=== PATIENT | male | born 1955 | race Caucasian/White ===

== ENCOUNTER 2020-05-11 10:44 | Emergency (ER) | payer MEDICARE, SELFPAY ==
[2020-05-11 10:46] VITALS: BP 105/95; PULSE 58; RESP 18; TEMP 36.1; O2SAT 97; BMI 34.2
--- NOTE | 2020-05-11 11:04 | ED.VIS.GEN ---
History of Present Illness Chief Complaint: Abn Labs Detail of Chief Complaint: Elevated creatinine and anemia Informant: Patient, SNF Onset: - - Past several days Context: Gradual Onset Timing: Continuous Quality: Recent admission to outside facility and placement to senior care for reha Location: long-term facility Current Severity: Moderate Maximum Severity: Moderate Worsened by: Metastatic cancer Relieved by: Nothing Associated Symptoms: Malaise, generalized weakness Narrative: Patient is a 65-year-old male who was recently diagnosed with malignant neoplasm of unspecified part of the bronchus/lung with metastasis to the bone and secondary to malignancy involving the liver and intrahepatic biliary ducts. Patient was brought to the hospital by ambulance. He does have a signed verified DNR document that accompanied him. He does not want therapy. He is alert he is oriented has a capacity to refuse treatment for his metastatic cancer and dialysis. Patient has current long-term use of anti-platelet medicine, anticoagulant use with recent diagnosis of metastatic cancer to liver and bone. He also has history of type 2 diabetes, circulatory complications due to diabetes. He also had recent admission for acute pancreatitis. There is a history of hyperlipidemia and hypertension without involvement of heart failure. Prior similar symptoms: No Recent Illness/Hospitalization: Yes - Past Medical History (1) Metastatic cancer Status: Acute (2) Elevated serum creatinine Status: Acute (3) Anemia Status: Acute Past Medical History - Allergies and Home Meds Allergies/Adverse Reactions: Allergies No Known Allergies Allergy (Verified 05/11/20 10:48) Primary Care Physician: Davidson Hall MD [Primary Care Provider] - Prior records reviewed: No - Reviewed paperwork that accompanied patient from nursing facility Lives: Jail Smoking Status: Current every day smoker Alcohol: None Drugs: None Review of Systems General: Reports: Malaise, Weight loss. Denies: Chills, Fever, Subjective, Sweats Eyes: Denies: Visual changes - bilaterally, Blurred Vision - bilaterally ENT: Denies: Rhinorrhea, Sore throat Cardiovascular: Denies: Chest pain, Palpitations Respiratory: Denies: Dyspnea, Cough, Sputum, Dyspnea on exertion Gastrointestinal: Reports: Abdominal pain, Nausea. Denies: Vomiting, Diarrhea, Constipation Genitourinary: Denies: Dysuria, Hematuria, Frequency Musculoskeletal: Reports: Swelling. Denies: Myalgias, Arthralgias, Neck pain, Back pain Skin: Denies: Rash Neurological: Reports: Weakness Endocrine: Denies: Polyuria, Polydipsia Hematologic: Reports: Easy bruising Physical Exam Vital Signs/Narrative: Vital Signs Temp Pulse Resp BP Pulse Ox 05/11/20 10:46 96.9 F L 58 L 18 105/95 H 97 Inital Vital Signs reviewed: Yes General: Well nourished, Well developed, Obese, No Acute Distress Head: Normocephalic, Atraumatic Eyes: Perrl, EOMI, Pale conjunctiva. Negative for: Scleral icterus ENT: No rhinorrhea, TM's clear Neck: Supple, Nontender, No lymphadenopathy, No JVD Cardiovascular: Regular rhythm, No murmurs, Normal S1, Normal S2, Bradycardia Respiratory: No distress, CTA bilaterally, Chest nontender Abdomen: Soft, Nontender, Nondistended, Normal bowel sounds Rectal: Deferred Back: Nontender Extremities: Nontender, Edema Skin: No rash, Pallor. Negative for: Cyanosis, Diaphoresis, Jaundice Neurological: Alert, Oriented x3, Cranial nerves II-XII grossly intact, Normal Strength, Normal Sensation, Normal DTR Psychological: Normal affect Diagnostic/Tx/Re-eval - Medical Decision Making Since patient is DNR comfort care wishes no treatment for his newly diagnosed metastatic cancer who has developed an elevated creatinine plan is to contact hospice. Patient informed me that the nursing facility would not accept him back until his laboratory results have been corrected Since patient does not wish any intervention and is DNR no new laboratory tests were ordered. Results from 2 days ago were reviewed. Creatinine was 4.2 and hemoglobin was 8.1. Woke with Dr. Brie Julian hospice physician. Spoke with Laura the hospice nurse. Patient would like to return to the nursing facility. He would like to know what his physical therapy options are. Plan is to honor patient's wishes and transfer her back to nursing facility since he requesting no dialysis or treatment for his metastatic lung cancer to liver and bone. ED Disposition - Plan for ED Patient: Disposition: Senior Care Facility Diagnosis: Metastatic lung cancer (metastasis from lung to other site), Acute kidney injury, Anemia of chronic illness Instructions: ED Anemia Type Not Specified, ED END STAGE RENAL DISEASE, Lung Cancer: Planning for the Future, Living with Lung Cancer Referrals: Davidson Hall MD [Primary Care Provider] - As Needed
--- NOTE | 2020-05-11 11:44 | ED.RN ---
PT ARRIVES TO ED NO KNOWING WHY HE IS HERE. HE STATES HE HAS CANCER. DNRCC IN PLACE. PT DOES NOT WANT ANY TREATMENT. DR SANTANA REQUESTS CALL TO HOSPICE FOR REFERRAL. TC MADE, SPOKE TO ARMANDO. WILL HAVE ADMISSION NURSE COME TO ASSESS PT.
[2020-05-11 13:00] VITALS: RESP 16
[2020-05-11 15:15] VITALS: BP 146/68; PULSE 64; RESP 16; O2SAT 93
[2020-05-11 15:20] VITALS: BP 146/68; PULSE 63; RESP 19; O2SAT 93
== END 2020-05-11 16:21 | disposition skilled nursing facility (03) ==
PROVIDERS: Emergency Provider Emergency Medicine; PCP Family Medicine
DX: N17.9 Acute kidney failure, unspecified (principal); C34.90 Malignant neoplasm of unspecified part of unspecified bronchus or lung; C79.51 Secondary malignant neoplasm of bone; C78.7 Secondary malignant neoplasm of liver and intrahepatic bile duct; Z66 Do not resuscitate; Z99.2 Dependence on renal dialysis; E11.59 Type 2 diabetes mellitus with other circulatory complications; E78.5 Hyperlipidemia, unspecified; I10 Essential (primary) hypertension; F17.200 Nicotine dependence, unspecified, uncomplicated; D63.8 Anemia in other chronic diseases classified elsewhere
CPT/HCPCS: 99282

== ENCOUNTER 2020-08-15 02:30 | Emergency (ER) | payer SELFPAY ==
[2020-08-15 02:32] VITALS: BP 105/61; PULSE 64; RESP 26; TEMP 35.7; O2SAT 100; BMI 34.0
--- NOTE | 2020-08-15 02:41 | EKG12_ITS ---
Test Reason : DYSRHYTHMIA Blood Pressure : / mmHG Vent. Rate : 066 BPM Atrial Rate : 066 BPM P-R Int : 196 ms QRS Dur : 158 ms QT Int : 446 ms P-R-T Axes : 039 -57 025 degrees QTc Int : 467 ms Normal sinus rhythm Right bundle branch block Left anterior fascicular block Bifascicular block Abnormal ECG Confirmed by ANGÉLICA OSORIO, SKYE ([id number]), avid editor KAMILA HUTTON ([id number]) on 08/16/2020 8:55:53 AM Referred By: BB Confirmed By:SKYE LINDSAY MD
--- NOTE | 2020-08-15 02:42 | ED.DCSUM_ITS ---
History of Present Illness Chief Complaint: Alt LOC Informant: Patient, Process Developer, SNF Onset: - - JPTA Context: - - see below Quality: unresponsive/lethargic Narrative: Patient is at a assisted, DNR comfort care on hospice for a soft tissue cancer and apparently liver cancer, unknown if he has 2 primaries or if these are metastatic lesions, etc. He is normally alert and oriented x3 and goes to bed on his own. He is chronically on 3.5 L nasal cannula oxygen. He was last seen at 2000 normal when he received his evening medications. He was tired throughout the day prior to that but otherwise at his baseline. He was found this morning just prior to arrival (in emergency department around 2:35 AM) sitting in a chair instead of being in bed, pulled off his oxygen so he was sitting in the chair without it, slumped over, unresponsive but breathing with a pulse, hypotensive, hypoxic, borderline bradycardic. Blood pressure 83/47, pulse 61, oxygen 71% on room air. EMS was called to respond, put him on non rebreather and transported him here. Now the patient is awake and states that he feels fine denies any pain, shortness of breath, headache. He is on Eliquis. We were not alerted that he was on hospice in report, yet saw this on the paperwork that was sent accompanying him. - Past Medical History (1) Anemia Status: Chronic (2) Metastatic cancer Status: Chronic Past Medical History - Allergies and Home Meds Allergies/Adverse Reactions: Allergies No Known Allergies Allergy (Verified 08/15/20 02:38) Primary Care Physician: Davidson Hall MD [Primary Care Provider] - As Needed Smoking Status: Unknown if ever smoked Review of Systems ROS: Unable to Obtain - limited due to disorientation; see below. General: Reports: Malaise Eyes: Denies: Visual changes - bilaterally, Diplopia ENT: Denies: Bilateral ear pain, Sore throat Cardiovascular: Denies: Chest pain Respiratory: Denies: Dyspnea, Cough Gastrointestinal: Reports: Abdominal pain - chronic from cancer, unchanged. Denies: Nausea, Vomiting Musculoskeletal: Reports: Swelling - BLE. Denies: Neck pain, Back pain, Extremity Pain Skin: Denies: Rash, Wounds Neurological: Denies: Headache, Numbness Physical Exam Vital Signs/Narrative: Vital Signs Temp Pulse Resp BP Pulse Ox 08/15/20 02:32 96.3 F L 64 26 H 105/61 100 Inital Vital Signs reviewed: Yes General: Well nourished, Well developed, No Acute Distress Head: Normocephalic, Atraumatic Eyes: Perrl, EOMI ENT: Moist mucous membranes, No rhinorrhea Neck: Supple, Nontender, No lymphadenopathy, No JVD Cardiovascular: Regular rate, Regular rhythm, No murmurs. Negative for: Tachycardia Respiratory: No distress, CTA bilaterally, Chest nontender Abdomen: Soft, Nondistended, Normal bowel sounds, Tender - Diffuse, Mass - Several firm areas scattered, abdomen overall soft. Negative for: Guarding, Rebound tenderness Back: Nontender, Normal Inspection Extremities: Nontender, Edema - 3+ both lower extremities to the knees without signs of cellulitis Skin: Normal color, No rash, No Trauma Neurological: Cranial nerves II-XII grossly intact, Normal Sensation, Disoriented - Oriented to name and his age but not the month or place, Lethargic - Alerts easily to voice., Weakness - Diffuse and symmetric. Patient has mild drift on both arms symmetrically, and cannot hold his legs up but they are very edematous, he can move them both symmetrically., - - No aphasia. Speech mildly slurred. Psychological: Normal affect, Normal Mood Diagnostic/Tx/Re-eval Impressions Brain CT 08/15/20 03:27 IMPRESSION: No acute intracranial abnormality. Chronic involutional and white matter changes. Individualized dose optimization techniques were used for this CT. at 0357 Reported and signed by: Ramona Simeon MD Electronically Signed: Ramona Simeon MD at 3:57 EST Tel , Service support , 08/15/20 03:27 CT Brain [Brain/Head without Contrast] [CT] Stat Laboratory Results 08/15/20 08/15/20 03:55 03:55 WBC 6.9 RBC 3.79 L Hgb 9.8 L Hct 34.9 L MCV 92.1 MCH 25.9 L MCHC 28.1 L RDW Std Deviation 55.5 H RDW Coeff of Ralf 16.4 H Plt Count 235 MPV 10.8 Immature Gran % (Auto) 1.400 H Neut % (Auto) 79.7 H Lymph % (Auto) 8.4 L [place] % (Auto) 10.1 H Eos % (Auto) 0.1 Baso % (Auto) 0.3 Absolute Neuts (auto) 5.5 Absolute Lymphs (auto) 0.58 L Nucleated RBC % 0 Sodium 134 L Potassium 5.1 Chloride 94 L Carbon Dioxide 36.0 H Anion Gap 4 L BUN 44 H Creatinine 2.30 H Estim Creat Clear Calc 33.65 Est GFR (MDRD) Af Amer 37 L Est GFR (MDRD) Non-Af 30 L BUN/Creatinine Ratio 19.1 Glucose 106 Calcium 8.9 Troponin I < 0.015 - Rhythm Strip Rhythm Strip: Sinus Rhythm Rate: 66 Ectopy: None - EKG Initial EKG Interpretation: Sinus Rhythm, No Acute Injury Pattern, RBBB, LAFB Prior: No Prior - Medical Decision Making I do not think this patient is having an acute stroke. His slurred speech is nonspecific in context of no other lateralizing neurologic deficits, and I would expect a patient who is hypoxic and hypotensive as he was when found by nursing, to be lethargic and have slurred speech as a result. Now that the patient is on oxygen, he is improved compared with report, and his vital signs are normal except for mild tachypnea. He is in no respiratory distress and denies feeling dyspneic. I had respiratory perform an EKG, and then we supported the patient with oxygen and I had the hospice triage nurse call person paged. She was unaware that the patient was being sent to the emergency department. We discussed his case. She prefers that we hold off on further testing since the patient would likely be discharged from the emergency departm ent back to long term facility, and we will continue to monitor him on oxygen for now. My suspicion is that the patient went to sit in his chair, and in doing so inadvertently took himself off of oxygen, creating this clinical picture and transient hypotension that resolved now that he is back on his oxygen. Regardless, the patient is DNR comfort care only, so we would not escalate care if he had another acute medical process. Hospice nurse came to the ER and saw the patient, and spoke with the healthcare power of logistics technician. In the end they decided to allow some labs to be run in his CT head. These were done and results are as above. 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 We do not have a prior creatinine on him, but there is nothing suggesting he would need dialysis at this time. She states that he has a large tumor in his lung that is about 9 cm, in addition to a tumor in his spine that his made his legs almost inoperable, and he is nonambulatory, cannot put himself to bed, requires help, and disagrees with the nursing report that our staff received. Additionally, family states that he really wanted a Covid vaccine, so it was given to him a couple days ago. His fatigue for the last 24 hours or so could easily be explained by that. At this time, the patient is more appropriate and alert, his vital signs have remained stable, and we have been trying to taper his oxygen requirement down as much as possible. Family and hospice nurse are comfortable with him being discharged back to the assisted which is the plan. ED Disposition - Plan for ED Patient: Disposition: Home or Assisted Living Diagnosis: Hypoxemia, Transient hypotension, Metastatic cancer Instructions: ED ALOC Referrals: Davidson Hall MD [Primary Care Provider] - As Needed
--- NOTE | 2020-08-15 02:44 | ED.RN ---
NO OLD EKGS IN MUSE
--- NOTE | 2020-08-15 02:59 | ED.RN ---
THIS RN SPOKE WITH HOSPICE NURSE RUTHIE. SHE STATES TO KEEP PT COMFORTABLE BUT HOLD OTHER CARE SUCH CT UNTIL SHE CAN TALK TO HER COMPUTED TOMOGRAPHY TECHNICIAN AND NURSING STAFF. SHE STATES SHE IS ALSO POSSIBLY SENDING A NURSE FROM HOSPICE TO THE ER TO ASSIST WITH PT CARE. NOTIFIED AND AGREEABLE TO PLAN OF CARE
--- NOTE | 2020-08-15 03:27 | CT_ITS ---
HISTORY: ALTERED MENTAL STATUS. Hx of metastatic lung cancer, HTN, diabetes and TIA ADDITIONAL HISTORY: None provided. COMPARISON: None EXAMINATION/TECHNIQUE: CT Head or Brain W/O Contrast Injection. Axial, coronal and sagittal images. Number of images including paperwork: 261. A radiation dose optimization technique was used for this scan. FINDINGS: BRAIN: No acute hemorrhage or mass. No definite acute infarct; MRI more sensitive. White matter hypodensity is nonspecific but most commonly seen with chronic ischemic changes. Generalized atrophy. VENTRICULAR SYSTEM: No hydrocephalus. PARANASAL SINUSES AND MASTOIDS: No air-fluid level in the imaged extent. Mucosal thickening noted. ORBITS: Unremarkable imaged extent. SKELETON AND SOFT TISSUES: Calvarium intact. ASPECTS score: Not applicable. CT/Brain/Head without Contrast IMPRESSION: No acute intracranial abnormality. Chronic involutional and white matter changes. Individualized dose optimization techniques were used for this CT. at 0357 Reported and signed by: Ramona Simeon MD Electronically Signed: Ramona Simeon MD at 3:57 EST Tel , Service support ,
[2020-08-15 03:31] VITALS: BP 108/59; PULSE 61; RESP 18; O2SAT 95
[2020-08-15 04:00] VITALS: RESP 18
[2020-08-15 04:09] LABS: Absolute Lymphocyte Count 0.58 X10^3/uL (0.83-4.51); Absolute Neutrophil Count 5.5 X10^3/uL (2.0-7.7); Basophil# 0.02 X10^3/uL; Basophil% 0.3 % (0-1); Eosinophil# 0.01 X10^3/uL; Eosinophils% 0.1 % (0-5); Hematocrit 34.9 % (40-54); Hemoglobin 9.8 g/dL (13.0-16.5); Lymphocyte # 0.58 X10^3/ul (4.0); Lymphocyte % 8.4 % (19-41); Mean Corp Hgb Conc 28.1 g/dL (32-36); Mean Corpuscular Hgb 25.9 pg (27.0-32.0); Mean Corpuscular Volume 92.1 fL (80-94); Mean Platelet Vol. 10.8 fl (6.2-12.0); Monocyte% 10.1 % (0-10); NRBC Flagged by Analyzer 0 % (0-5); Neutrophil # 5.52 X10^3/uL (2.7-7.7); Neutrophil % 79.7 % (47-70); POSITIVE DIFFERENTIAL YES; Platelet Count 235 K/mm3 (150-450); RBC Distribution Width CV 16.4 % (11.6-14.6); RBC Distribution Width SD 55.5 fl (35.1-43.9); Red Blood Count 3.79 M/mm3 (4.6-6.2); White Blood Count 6.9 K/mm3 (4.4-11.0)
[2020-08-15 04:21] LABS: Differential Indicated SCAN CRITERIA MET
[2020-08-15 04:27] LABS: Anion Gap 4 (5-15); BUN 44 mg/dL (7-18); BUN/Creat Ratio 19.1 RATIO (10-20); Calcium,Total 8.9 mg/dL (8.5-10.1); Chloride 94 mmol/L (98-107); EST Glomerular Filtration Rate 30 mL/min (>60); Est Glom Filt Rate - Afr Amer 37 mL/min (>60); Estimated Creatinine Clearance 33.65 ml/min; Glucose 106 mg/dL (74-106); Potassium 5.1 mmol/L (3.5-5.1); Sodium Level 134 mmol/L (136-145)
[2020-08-15] MEDS: Morphine 2 MG/ML Syringe IV (05:06)
[2020-08-15 05:11] VITALS: BP 126/70; PULSE 65; RESP 19; O2SAT 100
--- NOTE | 2020-08-15 05:29 | ED.RN ---
REPORT CALLED BACK TO THE AVE AND SPOKE WITH VANNESA MOISE. SHE VERBALIZES UNDERSTANDING OF PATIENT CARE GIVEN AT ED AND THAT HOSPICE WILL BE FOLLOWING PT BACK TO THE AVE
[2020-08-15 07:11] LABS: Bedside Glucose 133 mg/dL (70-110)
== END 2020-08-15 05:33 | disposition home or self-care (01) ==
PROVIDERS: Emergency Provider Emergency Medicine; PCP Family Medicine
DX: I95.9 Hypotension, unspecified (principal); R09.02 Hypoxemia; C34.90 Malignant neoplasm of unspecified part of unspecified bronchus or lung; C79.9 Secondary malignant neoplasm of unspecified site; Z66 Do not resuscitate
CPT/HCPCS: 36415; 70450; 80048; 82962; 84484; 85025; 93005; 96374; 99285; J7030; A4216